=== PATIENT | male | born 1970 ===

== ENCOUNTER 2022-05-07 13:55 | Emergency (ER) | payer BC | END 2022-05-07 15:21 | disposition home or self-care (01) | LOC: CC.ED 13:55 | DX: J44.1 Chronic obstructive pulmonary disease with (acute) exacerbation (principal); F41.9 Anxiety disorder, unspecified; Z72.0 Tobacco use | CPT/HCPCS: 36415; 71046; 80053; 83735; 83880; 84484; 85025; 85379; 86140; 93005; 93010; 99284; 99285 ==